=== PATIENT | male | born 1965 | race African-American/Black ===

== ENCOUNTER 2020-06-13 07:42 | Emergency (ER) | payer OTHER ==
[~2020-06-13] VITALS: Ht 167.6 cm; Wt 81.8 kg
[2020-06-13] MEDS ORDERED: ALBUTEROL SULFATE HFA 90 MCG/PUFF 8 GM INHALER IH ONE (09:15)
[2020-06-13] MEDS ORDERED: IPRATROPIUM BROMIDE HFA 17 MCG/PUFF 12.9 GM INHALER IH ONE (09:15)
[2020-06-13 09:58] LABS: COVID AG,FIA SOURCE NASAL SWAB
[2020-06-13] MEDS ORDERED: ASPIRIN 81 MG CHEWABLE TABLET PO ONE (11:30)
[2020-06-13] MEDS ORDERED: ACETAMINOPHEN 160 MG/5 ML SUSPENSION UDCUP PO ONE (11:30)
[2020-06-13 11:44] LABS: APPEARANCE,URINE CLEAR (CLEAR); BILIRUBIN,URINE NEGATIVE (NEGATIVE); GLUCOSE, URINE (UA) NEGATIVE (NEGATIVE); KETONES,URINE TRACE mg/dL (NEGATIVE); LEUKOCYTE ESTERASE ,URINE NEGATIVE (NEGATIVE); NITRATE,URINE NEGATIVE (NEGATIVE); OCCULT BLOOD,URINE NEGATIVE (NEGATIVE); PH,URINE 7.5 (5.0-8.0); PROTEIN,URINE NEGATIVE (NEGATIVE)
[2020-06-13 12:23] LABS: BASOPHILS % (AUTO) 0.6 % (0.0-2.0); EOSINOPHILS % (AUTO) 1.6 % (1.0-6.0); HEMATOCRIT 44.2 % (41-53); HEMOGLOBIN 14.1 g/dL (13.5-17.5); LYMPHOCYTES # (AUTO) 1.3 K/uL (1.0-4.8); LYMPHOCYTES % (AUTO) 23.3 % (22.0-44.0); MEAN CORPUSCULAR HEMOGLOBIN 30.3 pg (26.0-34.0); MEAN CORPUSCULAR HGB CONC 31.9 G/dL (31.0-37.0); MEAN CORPUSCULAR VOLUME 95 fL (80-100); MONOCYTES # (AUTO) 0.5 K/uL (0.1-1.0); NEUTROPHILS # (AUTO) 3.7 K/uL (1.8-7.7); NEUTROPHILS % (AUTO) 65.5 % (40.0-70.0); PLATELET COUNT (AUTO) 223 K/uL (150-450); RED BLOOD CELL COUNT(AUTO) 4.64 MIL/uL (4.50-5.90); RED CELL DISTRIBUTION WIDTH 14.1 % (11.5-14.5)
[2020-06-13 12:33] LABS: ANION GAP 9 mmol/L (8-16); CALCIUM, TOTAL 8.9 mg/dL (8.8-10.5); CARBON DIOXIDE 29 mmol/L (22-29); CHLORIDE 105 mmol/L (98-107); CREATININE 0.74 mg/dL (0.60-1.30); GLOMERULAR FILTR. RATE CALC > 60 mL/min (>60); GLUCOSE,RANDOM 101 mg/dL (70-110); POTASSIUM 3.9 mmol/L (3.5-5.1); SODIUM SERUM 143 mmol/L (136-145); UREA NITROGEN, BLOOD 9 mg/dL (7-18)
[2020-06-13 12:52] LABS: B-TYPE NATRIURETIC PEPTIDE 26 pg/mL (0-100)
[2020-06-13 12:58] LABS: ALANINE AMINOTRANSFERASE 59 U/L (12-78); ALBUMIN 3.8 g/dL (3.4-5.0); ALKALINE PHOSPHATASE 113 U/L (46-116); ASPARTATE AMINOTRANSFERASE 35 U/L (15-37); BILIRUBIN,TOTAL 0.3 mg/dL (0.1-1.0); CREATINE KINASE, TOTAL ONLY 591 U/L (39-308); TOTAL PROTEIN, SERUM 7.5 g/dL (6.4-8.2)
[2020-06-13 13:16] VITALS: BP 161/41
== END 2020-06-13 14:43 | disposition home or self-care (01) ==
LOC: EMS 07:42
DX: I10 Essential (primary) hypertension (principal); R06.02 Shortness of breath; R51.9 Headache, unspecified; J45.909 Unspecified asthma, uncomplicated; F17.210 Nicotine dependence, cigarettes, uncomplicated; Z20.822 Contact with and (suspected) exposure to COVID-19
CPT/HCPCS: 87426; 93005; 94640; 99285; J3535; 36415-L1; 36415-TC; 71045-TC; 81003-TC

== ENCOUNTER 2020-06-20 20:31 | Emergency (ER) | payer OTHER ==
[~2020-06-20] VITALS: Ht 157.5 cm; Wt 180.0 kg
[2020-06-20] MEDS ORDERED: CARB-60 PO (20:53)
[2020-06-20] MEDS ORDERED: LISI-893 PO (20:53)
[2020-06-20] MEDS ORDERED: DICL75TA5 PO (20:53)
[2020-06-20] MEDS ORDERED: VENL-193 PO (20:53)
[2020-06-20] MEDS ORDERED: BUSP15 PO (20:53)
[2020-06-20] MEDS ORDERED: ACET-3385 PO (20:53)
[2020-06-20] MEDS ORDERED: PANT-31 PO (20:53)
[2020-06-20] MEDS ORDERED: METO25TA3 PO (20:53)
[2020-06-20] MEDS ORDERED: CHLO100T31 PO (20:53)
[2020-06-20] MEDS ORDERED: ATOR40TA28 PO (20:53)
[2020-06-20] MEDS ORDERED: GABA-1181 PO (20:53)
[2020-06-20] MEDS ORDERED: NORT25 PO (20:53)
[2020-06-20] MEDS ORDERED: HYD50 PO (20:53)
[2020-06-20] MEDS ORDERED: METF-960 PO (20:53)
[2020-06-20] MEDS ORDERED: ASPI-1450 PO (20:53)
[2020-06-20] MEDS ORDERED: AMOX TR/POT CLAV 875 MG/125 MG TABLET PO ONE (23:15)
[2020-06-20] MEDS ORDERED: PERTUSS(ACELL),DIPH,TET VAC/PF 0.5 ML SYRINGE IM ONE (23:30)
[2020-06-20] MEDS ORDERED: ACETAMINOPHEN 325 MG TABLET PO ONE (23:30)
[2020-06-21 01:23] VITALS: BP 135/71
== END 2020-06-21 02:07 | disposition short-term general hospital (02) ==
LOC: EMS 20:31
DX: S02.5XXA Fracture of tooth (traumatic), initial encounter for closed fracture (principal); J45.909 Unspecified asthma, uncomplicated; E11.9 Type 2 diabetes mellitus without complications; E78.00 Pure hypercholesterolemia, unspecified; I10 Essential (primary) hypertension; F17.210 Nicotine dependence, cigarettes, uncomplicated; Z79.84 Long term (current) use of oral hypoglycemic drugs; Z79.899 Other long term (current) drug therapy; W50.0XXA Accidental hit or strike by another person, initial encounter; Y93.89 Activity, other specified; Y92.89 Other specified places as the place of occurrence of the external cause; Y99.8 Other external cause status
CPT/HCPCS: 90471; 90715; 99283; 99285

== ENCOUNTER 2020-08-30 10:02 | Emergency (ER) | payer OTHER ==
[~2020-08-30] VITALS: Ht 170.2 cm; Wt 79.5 kg
[~2020-08-30 10:02] MED LIST: ACET-3385 PO; ASPI-1450 PO; ATOR40TA28 PO; BUSP15 PO; CARB-60 PO; CHLO100T31 PO; DICL75TA5 PO; GABA-1181 PO; HYD50 PO; LISI-893 PO; METF-960 PO; METO25TA3 PO; NORT25 PO; PANT-31 PO; VENL-193 PO
[2020-08-30 10:37] LABS: COVID AG,FIA SOURCE NASOPHARYNGEAL
[2020-08-30] MEDS ORDERED: SODIUM CHLORIDE 0.9% 1,000 ML IV ONE (10:45)
[2020-08-30] MEDS ORDERED: ONDANSETRON HCL 4 MG/2 ML VIAL IVP ONE (10:45)
[2020-08-30] MEDS ORDERED: KETOROLAC TROMETHAMINE 30 MG/ML VIAL IVP ONE (10:45)
[2020-08-30] MEDS ORDERED: ACETAMINOPHEN 500 MG TABLET PO ONE (10:45)
[2020-08-30 11:24] LABS: BASOPHILS % (AUTO) 0.5 % (0.0-2.0); EOSINOPHILS % (AUTO) 0.6 % (1.0-6.0); HEMATOCRIT 39.2 % (41-53); HEMOGLOBIN 12.6 g/dL (13.5-17.5); LYMPHOCYTES # (AUTO) 1.6 K/uL (1.0-4.8); LYMPHOCYTES % (AUTO) 27.8 % (22.0-44.0); MEAN CORPUSCULAR HEMOGLOBIN 29.8 pg (26.0-34.0); MEAN CORPUSCULAR VOLUME 93 fL (80-100); MONOCYTES # (AUTO) 0.4 K/uL (0.1-1.0); MONOCYTES % (AUTO) 7.2 % (2.0-9.0); NEUTROPHILS # (AUTO) 3.7 K/uL (1.8-7.7); NEUTROPHILS % (AUTO) 63.9 % (40.0-70.0); PLATELET COUNT (AUTO) 216 K/uL (150-450); RED BLOOD CELL COUNT(AUTO) 4.21 MIL/uL (4.50-5.90); RED CELL DISTRIBUTION WIDTH 13.5 % (11.5-14.5)
[2020-08-30 11:32] LABS: APPEARANCE,URINE CLEAR (CLEAR); GLUCOSE, URINE (UA) NEGATIVE (NEGATIVE); KETONES,URINE NEGATIVE (NEGATIVE); LEUKOCYTE ESTERASE ,URINE NEGATIVE (NEGATIVE); NITRATE,URINE NEGATIVE (NEGATIVE); OCCULT BLOOD,URINE NEGATIVE (NEGATIVE); PROTEIN,URINE NEGATIVE (NEGATIVE)
[2020-08-30 11:51] LABS: BILIRUBIN,URINE PRELIM. POSITIVE (NEGATIVE)
[2020-08-30 12:04] LABS: AMPHET/METH SCREEN,URINE NEGATIVE (NEGATIVE); BARBITURATE SCREEN, URINE NEGATIVE (NEGATIVE); BENZODIAZEPINES SCREEN,URINE NEGATIVE (NEGATIVE); CANNABINOID SCREEN,URINE NEGATIVE (NEGATIVE); COCAINE SCREEN,URINE NEGATIVE (NEGATIVE); METHADONE SCREEN, URINE NEGATIVE (NEGATIVE); OPIATE SCREEN,URINE NEGATIVE (NEGATIVE)
[2020-08-30 12:08] LABS: PHENCYCLIDINE SCREEN,URINE NEGATIVE (NEGATIVE)
[2020-08-30 12:10] LABS: LACTIC ACID 1.9 mmol/L (0.4-2.0)
[2020-08-30 12:17] LABS: ANION GAP 12 mmol/L (8-16); CARBON DIOXIDE 25 mmol/L (22-29); CHLORIDE 106 mmol/L (98-107); CREATININE 0.96 mg/dL (0.60-1.30); GLOMERULAR FILTR. RATE CALC > 60 mL/min (>60); GLUCOSE,RANDOM 103 mg/dL (70-110); POTASSIUM 3.6 mmol/L (3.5-5.1); SODIUM SERUM 143 mmol/L (136-145); UREA NITROGEN, BLOOD 16 mg/dL (7-18)
[2020-08-30 12:19] LABS: ALANINE AMINOTRANSFERASE 39 U/L (12-78); ALBUMIN 3.3 g/dL (3.4-5.0); ALKALINE PHOSPHATASE 101 U/L (46-116); ASPARTATE AMINOTRANSFERASE 25 U/L (15-37); BILIRUBIN,TOTAL 0.3 mg/dL (0.1-1.0); LIPASE 127 U/L (73-393); TOTAL PROTEIN, SERUM 6.5 g/dL (6.4-8.2)
[2020-08-30 13:03] LABS: WBC,URINE 0-2 /HPF (0-5)
[2020-08-30 13:04] LABS: BACTERIA,URINE None Seen /HPF (None Seen); RBC,URINE 0-2 /HPF (0-2)
[2020-08-30 13:05] LABS: SQUAMOUS EPITHELIAL CELL,UR None Seen /LPF (None Seen); YEAST,URINE None Seen /HPF (None Seen)
[2020-08-30 13:10] VITALS: BP 129/72
== END 2020-08-30 13:28 | disposition home or self-care (01) ==
LOC: EMS 10:05
DX: K52.9 Noninfective gastroenteritis and colitis, unspecified (principal); J45.909 Unspecified asthma, uncomplicated; E11.9 Type 2 diabetes mellitus without complications; E78.00 Pure hypercholesterolemia, unspecified; I10 Essential (primary) hypertension; F17.210 Nicotine dependence, cigarettes, uncomplicated; Z20.822 Contact with and (suspected) exposure to COVID-19; Z79.899 Other long term (current) drug therapy; Z79.84 Long term (current) use of oral hypoglycemic drugs
CPT/HCPCS: 36415; 71045; 74176; 80053; 80307; 81001; 83605; 83690; 84484; 85025; 87426; 93005; 96361; 96374; 96375; 99285; G0480; J1885; J2405; J7030

== ENCOUNTER 2021-02-27 14:05 | Emergency (ER) | payer OTHER ==
[~2021-02-27] VITALS: Ht 165.1 cm; Wt 80.0 kg
[~2021-02-27 14:05] MED LIST changes: +METF-1211 PO; -METF-960 PO
[2021-02-27 17:22] VITALS: BP 160/80
== END 2021-02-27 18:15 | disposition home or self-care (01) ==
LOC: EMS 14:09
DX: S60.031A Contusion of right middle finger without damage to nail, initial encounter (principal); M13.842 Other specified arthritis, left hand; M13.841 Other specified arthritis, right hand; F17.210 Nicotine dependence, cigarettes, uncomplicated; E11.9 Type 2 diabetes mellitus without complications; I10 Essential (primary) hypertension; E78.00 Pure hypercholesterolemia, unspecified; Y92.89 Other specified places as the place of occurrence of the external cause; Y99.8 Other external cause status; X58.XXXA Exposure to other specified factors, initial encounter; Y93.89 Activity, other specified; Z79.84 Long term (current) use of oral hypoglycemic drugs
CPT/HCPCS: 82962; 99284; 99285

== ENCOUNTER 2021-08-02 02:36 | Emergency (ER) | payer OTHER ==
[~2021-08-02] VITALS: Ht 177.8 cm; Wt 100.0 kg
[~2021-08-02 02:36] MED LIST changes: -CHLO100T31 PO; +CHLO100T42 PO; -HYD50 PO; +HYDR-4584 PO
[2021-08-02 04:00] VITALS: BP 123/65
[2021-08-02 04:27] LABS: BASOPHILS % (AUTO) 0.5 % (0.0-2.0); HEMATOCRIT 39.2 % (41-53); HEMOGLOBIN 12.6 g/dL (13.5-17.5); LYMPHOCYTES # (AUTO) 1.4 K/uL (1.0-4.8); LYMPHOCYTES % (AUTO) 26.6 % (22.0-44.0); MEAN CORPUSCULAR HEMOGLOBIN 30.4 pg (26.0-34.0); MEAN CORPUSCULAR HGB CONC 32.1 G/dL (31.0-37.0); MEAN CORPUSCULAR VOLUME 95 fL (80-100); MONOCYTES # (AUTO) 0.6 K/uL (0.1-1.0); NEUTROPHILS # (AUTO) 3.1 K/uL (1.8-7.7); NEUTROPHILS % (AUTO) 59.9 % (40.0-70.0); PLATELET COUNT (AUTO) 205 K/uL (150-450); RED BLOOD CELL COUNT(AUTO) 4.14 MIL/uL (4.50-5.90); RED CELL DISTRIBUTION WIDTH 13.5 % (11.5-14.5)
[2021-08-02 04:50] LABS: ANION GAP 6 mmol/L (8-16); CALCIUM, TOTAL 8.3 mg/dL (8.8-10.5); CARBON DIOXIDE 29 mmol/L (22-29); CHLORIDE 103 mmol/L (98-107); GLOMERULAR FILTR. RATE CALC > 60 mL/min (>60); GLUCOSE,RANDOM 98 mg/dL (70-110); POTASSIUM 3.6 mmol/L (3.5-5.1); SODIUM SERUM 138 mmol/L (136-145); UREA NITROGEN, BLOOD 11 mg/dL (7-18)
[2021-08-02 04:52] LABS: B-TYPE NATRIURETIC PEPTIDE 11 pg/mL (0-100)
[2021-08-02 05:12] LABS: ALANINE AMINOTRANSFERASE 27 U/L (12-78); ALKALINE PHOSPHATASE 85 U/L (46-116); ASPARTATE AMINOTRANSFERASE 27 U/L (15-37); BILIRUBIN,TOTAL 0.3 mg/dL (0.1-1.0); CREATINE KINASE, TOTAL ONLY 407 U/L (39-308); TOTAL PROTEIN, SERUM 6.5 g/dL (6.4-8.2)
[2021-08-02] MEDS ORDERED: ACETAMINOPHEN 500 MG TABLET PO ONE (07:00)
== END 2021-08-02 08:16 | disposition home or self-care (01) ==
LOC: EMS 02:38
DX: R00.1 Bradycardia, unspecified (principal); R07.89 Other chest pain; R06.02 Shortness of breath; R42 Dizziness and giddiness; M25.561 Pain in right knee; M25.562 Pain in left knee; M25.511 Pain in right shoulder; M25.512 Pain in left shoulder; J45.909 Unspecified asthma, uncomplicated; E11.9 Type 2 diabetes mellitus without complications; E78.00 Pure hypercholesterolemia, unspecified; I10 Essential (primary) hypertension; F17.210 Nicotine dependence, cigarettes, uncomplicated; Z79.899 Other long term (current) drug therapy
CPT/HCPCS: 71045; 80053; 82550; 83880; 84484; 85025; 93005; 99285; 36415-L1; 36415-TC

== ENCOUNTER 2021-11-05 08:10 | Emergency (ER) | payer OTHER ==
[~2021-11-05] VITALS: Ht 157.5 cm; Wt 68.2 kg
[2021-11-05] MEDS ORDERED: IBUPROFEN 600 MG TABLET PO ONE (09:15)
[2021-11-05] MEDS ORDERED: ACETAMINOPHEN 500 MG TABLET PO ONE (09:15)
[2021-11-05] MEDS ORDERED: DiphenhydrAMINE HCL 25 MG CAPSULE PO ONE (09:15)
[2021-11-05 09:43] LABS: BASOPHILS % (AUTO) 0.9 % (0.0-2.0); EOSINOPHILS % (AUTO) 1.7 % (1.0-6.0); HEMATOCRIT 43.1 % (41-53); HEMOGLOBIN 14.1 g/dL (13.5-17.5); LYMPHOCYTES # (AUTO) 1.1 K/uL (1.0-4.8); LYMPHOCYTES % (AUTO) 25.3 % (22.0-44.0); MEAN CORPUSCULAR HEMOGLOBIN 30.8 pg (26.0-34.0); MEAN CORPUSCULAR HGB CONC 32.8 G/dL (31.0-37.0); MEAN CORPUSCULAR VOLUME 94 fL (80-100); MONOCYTES # (AUTO) 0.5 K/uL (0.1-1.0); MONOCYTES % (AUTO) 10.9 % (2.0-9.0); NEUTROPHILS # (AUTO) 2.8 K/uL (1.8-7.7); NEUTROPHILS % (AUTO) 61.2 % (40.0-70.0); PLATELET COUNT (AUTO) 197 K/uL (150-450); RED BLOOD CELL COUNT(AUTO) 4.58 MIL/uL (4.50-5.90); RED CELL DISTRIBUTION WIDTH 13.9 % (11.5-14.5)
[2021-11-05 09:56] LABS: ANION GAP 8 mmol/L (8-16); CALCIUM, TOTAL 8.7 mg/dL (8.8-10.5); CARBON DIOXIDE 27 mmol/L (22-29); CHLORIDE 104 mmol/L (98-107); CREATININE 0.95 mg/dL (0.60-1.30); GLOMERULAR FILTR. RATE CALC > 60 mL/min (>60); GLUCOSE,RANDOM 107 mg/dL (70-110); POTASSIUM 3.7 mmol/L (3.5-5.1); SODIUM SERUM 139 mmol/L (136-145); UREA NITROGEN, BLOOD 12 mg/dL (7-18)
[2021-11-05 10:21] LABS: ALANINE AMINOTRANSFERASE 28 U/L (12-78); ALBUMIN 3.3 g/dL (3.4-5.0); ALKALINE PHOSPHATASE 94 U/L (46-116); ASPARTATE AMINOTRANSFERASE 21 U/L (15-37); BILIRUBIN,TOTAL 0.5 mg/dL (0.1-1.0); CREATINE KINASE, TOTAL ONLY 266 U/L (39-308); PHOSPHORUS 3.2 mg/dL (2.5-4.9); TOTAL PROTEIN, SERUM 6.8 g/dL (6.4-8.2)
[2021-11-05 10:23] LABS: B-TYPE NATRIURETIC PEPTIDE 14 pg/mL (0-100)
[2021-11-05] MEDS ORDERED: MAGNESIUM OXIDE 400 MG TABLET PO ONE (10:30)
[2021-11-05 10:48] VITALS: BP 133/70
== END 2021-11-05 11:18 | disposition home or self-care (01) ==
LOC: EMS 08:15
DX: M79.641 Pain in right hand (principal); R20.2 Paresthesia of skin; J45.909 Unspecified asthma, uncomplicated; E78.00 Pure hypercholesterolemia, unspecified; I10 Essential (primary) hypertension; F17.210 Nicotine dependence, cigarettes, uncomplicated; R07.89 Other chest pain; E78.5 Hyperlipidemia, unspecified
CPT/HCPCS: 71045; 80053; 82550; 83735; 83880; 84100; 84484; 85025; 93005; 99285; 36415-L1; 36415-TC

== ENCOUNTER 2022-02-22 15:40 | Emergency (ER) | payer OTHER ==
[~2022-02-22] VITALS: Ht 165.1 cm; Wt 66.8 kg
[~2022-02-22 15:40] MED LIST changes: -ACET-3385 PO; -PANT-31 PO
[2022-02-22 16:44] LABS: BASOPHILS % (AUTO) 0.5 % (0.0-2.0); EOSINOPHILS % (AUTO) 1.5 % (1.0-6.0); HEMATOCRIT 41.9 % (41-53); HEMOGLOBIN 13.4 g/dL (13.5-17.5); LYMPHOCYTES # (AUTO) 1.6 K/uL (1.0-4.8); LYMPHOCYTES % (AUTO) 36.7 % (22.0-44.0); MEAN CORPUSCULAR HEMOGLOBIN 31.2 pg (26.0-34.0); MEAN CORPUSCULAR VOLUME 97 fL (80-100); MONOCYTES # (AUTO) 0.5 K/uL (0.1-1.0); MONOCYTES % (AUTO) 11.2 % (2.0-9.0); NEUTROPHILS # (AUTO) 2.2 K/uL (1.8-7.7); NEUTROPHILS % (AUTO) 50.1 % (40.0-70.0); PLATELET COUNT (AUTO) 214 K/uL (150-450); RED CELL DISTRIBUTION WIDTH 13.2 % (11.5-14.5)
[2022-02-22] MEDS ORDERED: KETOROLAC TROMETHAMINE 30 MG/ML VIAL IVP ONE (16:45)
[2022-02-22] MEDS ORDERED: SODIUM CHLORIDE 0.9% 1,000 ML IV ONE (16:45)
[2022-02-22 16:56] LABS: ANION GAP 6 mmol/L (8-16); CALCIUM, TOTAL 8.5 mg/dL (8.8-10.5); CARBON DIOXIDE 28 mmol/L (22-29); CHLORIDE 103 mmol/L (98-107); CREATININE 0.86 mg/dL (0.60-1.30); GLOMERULAR FILTR. RATE CALC > 60 mL/min (>60); GLUCOSE,RANDOM 92 mg/dL (70-110); SODIUM SERUM 137 mmol/L (136-145); UREA NITROGEN, BLOOD 16 mg/dL (7-18)
[2022-02-22 16:59] LABS: ALANINE AMINOTRANSFERASE 26 U/L (12-78); ALBUMIN 3.4 g/dL (3.4-5.0); ALKALINE PHOSPHATASE 89 U/L (46-116); ASPARTATE AMINOTRANSFERASE 22 U/L (15-37); BILIRUBIN,TOTAL 0.2 mg/dL (0.1-1.0); TOTAL PROTEIN, SERUM 6.9 g/dL (6.4-8.2)
[2022-02-22] MEDS ORDERED: CEPH-558 PO (17:47)
[2022-02-22] MEDS ORDERED: CYCL-448 PO (17:47)
[2022-02-22] MEDS ORDERED: CEPHALEXIN MONOHYDRATE 500 MG CAPSULE PO ONE (18:00)
[2022-02-22] MEDS ORDERED: BENZ-70 PO (18:25)
[2022-02-22 18:45] VITALS: BP 143/78
== END 2022-02-22 18:47 | disposition home or self-care (01) ==
LOC: EMS 15:52
DX: G43.909 Migraine, unspecified, not intractable, without status migrainosus (principal); G89.29 Other chronic pain; M54.50 Low back pain, unspecified; L03.032 Cellulitis of left toe; J45.909 Unspecified asthma, uncomplicated; E78.00 Pure hypercholesterolemia, unspecified; I10 Essential (primary) hypertension; F17.210 Nicotine dependence, cigarettes, uncomplicated; Z98.890 Other specified postprocedural states
CPT/HCPCS: 99283; 96374; 96361; 80053; 85025; 36415; J1885; J7030

== ENCOUNTER 2022-05-16 12:35 | Inpatient (IN) | payer MEDICAID, OTHER ==
[~2022-05-16] VITALS: Ht 157.5 cm; Wt 66.8 kg
[~2022-05-16 12:35] MED LIST changes: +BENZ-227 PO; +CEPH-558 PO; +CYCL-448 PO; -METF-1211 PO
[2022-05-16] MEDS ORDERED: METO25 PO (13:17)
[2022-05-16] MEDS ORDERED: FLUT16SP NASAL (13:17)
[2022-05-16] MEDS ORDERED: MELA5TAB40 PO (13:17)
[2022-05-16] MEDS ORDERED: NALT50TA5 PO (13:17)
[2022-05-16] MEDS ORDERED: ESCI10 PO (13:17)
[2022-05-16 13:34] LABS: COVID AG,FIA SOURCE NASOPHARYNGEAL
[2022-05-16] MEDS ORDERED: ACETAMINOPHEN 500 MG TABLET PO ONE (13:45)
[2022-05-16] MEDS ORDERED: IBUPROFEN 600 MG TABLET PO ONE (13:45)
[2022-05-16 13:50] LABS: ANION GAP 9 mmol/L (8-16); CALCIUM, TOTAL 8.5 mg/dL (8.8-10.5); CARBON DIOXIDE 27 mmol/L (22-29); CHLORIDE 103 mmol/L (98-107); CREATININE 0.77 mg/dL (0.60-1.30); GLOMERULAR FILTR. RATE CALC > 60 mL/min (>60); GLUCOSE,RANDOM 115 mg/dL (70-110); POTASSIUM 3.9 mmol/L (3.5-5.1); SODIUM SERUM 139 mmol/L (136-145); UREA NITROGEN, BLOOD 15 mg/dL (7-18)
[2022-05-16 13:51] LABS: AMPHET/METH SCREEN,URINE NEGATIVE (NEGATIVE); BARBITURATE SCREEN, URINE NEGATIVE (NEGATIVE); BENZODIAZEPINES SCREEN,URINE NEGATIVE (NEGATIVE); CANNABINOID SCREEN,URINE NEGATIVE (NEGATIVE); COCAINE SCREEN,URINE NEGATIVE (NEGATIVE); METHADONE SCREEN, URINE NEGATIVE (NEGATIVE); OPIATE SCREEN,URINE NEGATIVE (NEGATIVE); PHENCYCLIDINE SCREEN,URINE NEGATIVE (NEGATIVE)
[2022-05-16 13:52] LABS: BASOPHILS % (AUTO) 0.7 % (0.0-2.0); HEMATOCRIT 42.4 % (41-53); HEMOGLOBIN 13.3 g/dL (13.5-17.5); LYMPHOCYTES # (AUTO) 1.6 K/uL (1.0-4.8); LYMPHOCYTES % (AUTO) 33.8 % (22.0-44.0); MEAN CORPUSCULAR HEMOGLOBIN 30.6 pg (26.0-34.0); MEAN CORPUSCULAR HGB CONC 31.5 G/dL (31.0-37.0); MEAN CORPUSCULAR VOLUME 97 fL (80-100); MONOCYTES # (AUTO) 0.4 K/uL (0.1-1.0); NEUTROPHILS # (AUTO) 2.7 K/uL (1.8-7.7); NEUTROPHILS % (AUTO) 56.5 % (40.0-70.0); PLATELET COUNT (AUTO) 224 K/uL (150-450); RED BLOOD CELL COUNT(AUTO) 4.36 MIL/uL (4.50-5.90); RED CELL DISTRIBUTION WIDTH 13.7 % (11.5-14.5)
[2022-05-16 14:13] LABS: ALANINE AMINOTRANSFERASE 27 U/L (12-78); ALBUMIN 3.4 g/dL (3.4-5.0); ALKALINE PHOSPHATASE 95 U/L (46-116); ASPARTATE AMINOTRANSFERASE 26 U/L (15-37); BILIRUBIN,TOTAL 0.3 mg/dL (0.1-1.0); CREATINE KINASE, TOTAL ONLY 357 U/L (39-308); TOTAL PROTEIN, SERUM 7.2 g/dL (6.4-8.2)
[2022-05-16 14:17] LABS: B-TYPE NATRIURETIC PEPTIDE 25 pg/mL (0-100)
[2022-05-16] MEDS ORDERED: ZOLPIDEM TARTRATE 10 MG TABLET PO PRN (15:45)
[2022-05-16] MEDS ORDERED: LORazepam 2 MG TABLET PO PRN (15:45)
[2022-05-16] MEDS ORDERED: HALOPERIDOL 5 MG TABLET PO PRN (15:45)
[2022-05-16] MEDS ORDERED: HALOPERIDOL 5 MG TABLET PO ONE (16:00)
[2022-05-16] MEDS ORDERED: DiphenhydrAMINE HCL 25 MG CAPSULE PO ONE (16:00)
[2022-05-16] MEDS ORDERED: INSULIN REGULAR, HUMAN 100 UNITS/ML SQ ONE (16:00)
[2022-05-16] MEDS ORDERED: LORazepam 2 MG TABLET PO ONE (16:00)
[2022-05-16 21:41] VITALS: BP 110/82
[2022-05-17 08:07] VITALS: BP 135/65
[2022-05-17] MEDS ORDERED: LISINOPRIL 10 MG TABLET PO SCH (11:00)
[2022-05-17] MEDS ORDERED: ASPIRIN 81 MG CHEWABLE TABLET PO SCH (11:00)
[2022-05-17] MEDS: CarBAMazepine 200 MG TABLET PO SCH ×2 (11:33→16:03)
[2022-05-17] MEDS: ESCITALOPRAM OXALATE 10 MG TABLET PO SCH (11:33)
[2022-05-17] MEDS: BusPIRone HCL 15 MG TABLET PO SCH ×2 (11:33→16:03)
[2022-05-17] MEDS: METOPROLOL TARTRATE 25 MG TABLET PO SCH ×2 (11:34→16:03)
[2022-05-17] MEDS: METHYL SALICYLATE/MENTHOL 85 GM CREAM TP PRN (13:45)
[2022-05-17] MEDS: CLOTRIMAZOLE 1% 15 GM CREAM TP SCH ×2 (13:45→16:04)
[2022-05-17] MEDS: NORTRIPTYLINE HCL 25 MG CAPSULE PO SCH ×2 (13:45→21:34)
[2022-05-17] MEDS ORDERED: CloNIDine HCL 0.1 MG TABLET PO PRN (15:15)
[2022-05-17] MEDS ORDERED: DOCUSATE SODIUM 100 MG CAPSULE PO PRN (15:15)
[2022-05-17] MEDS ORDERED: ONDANSETRON HCL 4 MG TABLET PO PRN (15:15)
[2022-05-17] MEDS ORDERED: LOPERAMIDE HCL 2 MG CAPSULE PO PRN (15:15)
[2022-05-17] MEDS ORDERED: ALBUTEROL SULFATE HFA 90 MCG/PUFF 8 GM INHALER IH PRN (15:15)
[2022-05-17] MEDS ORDERED: ACETAMINOPHEN 325 MG TABLET PO PRN (15:15)
[2022-05-17] MEDS ORDERED: NICOTINE 14 MG/24 HOUR PATCH TD PRN (15:15)
[2022-05-17] MEDS ORDERED: FLUTICASONE PROPIONATE 50 MCG/SPRAY 16 GM NASAL SPRAY NASAL PRN (15:15)
[2022-05-17] MEDS ORDERED: PETROLATUM,WHITE 28 GM JELLY TP PRN (15:15)
[2022-05-17] MEDS ORDERED: MAGNESIUM HYDROXIDE SUSPENSION 30 ML UDCUP PO PRN (15:15)
[2022-05-17] MEDS ORDERED: IBUPROFEN 400 MG TABLET PO PRN (15:15)
[2022-05-17] MEDS ORDERED: GuaiFENesin/D-METHORPHAN [SUGAR-FREE] 200-20MG/10 ML SYRUP UDCUP PO PRN (15:15)
[2022-05-17] MEDS: DICLOFENAC SODIUM 75 MG DR TABLET PO SCH (16:03)
[2022-05-17] MEDS: MELATONIN 5 MG TABLET PO SCH (20:15)
[2022-05-17] MEDS: ChlorproMAZINE HCL 100 MG TABLET PO SCH (20:15)
[2022-05-17 20:22] VITALS: BP 128/71
[2022-05-17] MEDS ORDERED: ATORVASTATIN CALCIUM 40 MG TABLET PO SCH (21:00)
[2022-05-17 21:01] VITALS: BP 131/86
[2022-05-18] MEDS: CarBAMazepine 200 MG TABLET PO SCH ×2 (08:27→16:31)
[2022-05-18] MEDS: NORTRIPTYLINE HCL 25 MG CAPSULE PO SCH ×2 (08:27→16:31)
[2022-05-18] MEDS: ASPIRIN 81 MG CHEWABLE TABLET PO SCH (08:28)
[2022-05-18] MEDS: DICLOFENAC SODIUM 75 MG DR TABLET PO SCH ×2 (08:28→16:31)
[2022-05-18] MEDS: METOPROLOL TARTRATE 25 MG TABLET PO SCH ×2 (08:28→16:31)
[2022-05-18] MEDS: ESCITALOPRAM OXALATE 10 MG TABLET PO SCH (08:28)
[2022-05-18] MEDS: ATORVASTATIN CALCIUM 40 MG TABLET PO SCH (08:28)
[2022-05-18] MEDS: BusPIRone HCL 15 MG TABLET PO SCH ×2 (08:28→16:31)
[2022-05-18] MEDS: LISINOPRIL 10 MG TABLET PO SCH (08:28)
[2022-05-18] MEDS: CLOTRIMAZOLE 1% 15 GM CREAM TP SCH ×2 (09:11→16:31)
[2022-05-18 09:40] VITALS: BP 100/62
[2022-05-18] MEDS: METHYL SALICYLATE/MENTHOL 85 GM CREAM TP PRN (16:31)
[2022-05-18] MEDS: MAG HYDROX/AL HYDROX/SIMETH ES 30 ML SUSPENSION UDCUP PO PRN (20:10)
[2022-05-18 20:15] VITALS: BP 106/69
[2022-05-18] MEDS: MELATONIN 5 MG TABLET PO SCH (20:37)
[2022-05-18] MEDS: ChlorproMAZINE HCL 100 MG TABLET PO SCH (20:37)
[2022-05-19] MEDS: MAG HYDROX/AL HYDROX/SIMETH ES 30 ML SUSPENSION UDCUP PO PRN (03:07)
[2022-05-19 08:06] LABS: GLUCOMETER DEV NAME(LOC) POC.BV
[2022-05-19] MEDS: LISINOPRIL 10 MG TABLET PO SCH (08:07)
[2022-05-19] MEDS: CarBAMazepine 200 MG TABLET PO SCH (08:07)
[2022-05-19] MEDS: DICLOFENAC SODIUM 75 MG DR TABLET PO SCH (08:07)
[2022-05-19] MEDS: BusPIRone HCL 15 MG TABLET PO SCH (08:07)
[2022-05-19] MEDS: ESCITALOPRAM OXALATE 10 MG TABLET PO SCH (08:07)
[2022-05-19] MEDS: ATORVASTATIN CALCIUM 40 MG TABLET PO SCH (08:07)
[2022-05-19] MEDS: METOPROLOL TARTRATE 25 MG TABLET PO SCH (08:08)
[2022-05-19] MEDS: NORTRIPTYLINE HCL 25 MG CAPSULE PO SCH (08:08)
[2022-05-19] MEDS: ASPIRIN 81 MG CHEWABLE TABLET PO SCH (08:08)
[2022-05-19] MEDS: CLOTRIMAZOLE 1% 15 GM CREAM TP SCH (08:13)
[2022-05-19] MEDS: METHYL SALICYLATE/MENTHOL 85 GM CREAM TP PRN (08:14)
[2022-05-19 10:39] VITALS: BP 112/62
[2022-05-19] MEDS ORDERED: BUSP15 PO (14:51)
[2022-05-19] MEDS ORDERED: ESCI10 PO (14:51)
[2022-05-19] MEDS ORDERED: CARB200T6 PO (14:51)
[2022-05-19] MEDS ORDERED: CHLO100T42 PO (14:51)
[2022-05-19] MEDS ORDERED: NORT25 PO (14:51)
== END 2022-05-19 15:50 | disposition home or self-care (01) | DRG 750 ==
LOC: EMS 12:38 → B3A 17:14
PROVIDERS: ADMIT Psychiatry & Neurology Child & Adolescent Psychiatry; ATTEND Psychiatry & Neurology Child & Adolescent Psychiatry
DX: F25.0 Schizoaffective disorder, bipolar type (principal); Z91.14 Patient's other noncompliance with medication regimen; D64.9 Anemia, unspecified; E78.00 Pure hypercholesterolemia, unspecified; F41.1 Generalized anxiety disorder; G47.00 Insomnia, unspecified; J45.909 Unspecified asthma, uncomplicated; Z20.822 Contact with and (suspected) exposure to COVID-19; I10 Essential (primary) hypertension; Z87.891 Personal history of nicotine dependence
CPT/HCPCS: 71045; 80053; 80307; 82550; 83880; 84484; 85025; 93005; 99285; G0480; Q9967; 36415-L1; 36415-TC

== ENCOUNTER 2022-05-29 15:45 | Emergency (ER) | payer MEDICAID, OTHER ==
[~2022-05-29] VITALS: Ht 157.5 cm; Wt 75.0 kg
[~2022-05-29 15:45] MED LIST changes: -BENZ-227 PO; -CARB-60 PO; +CARB200T6 PO; -CEPH-558 PO; -CYCL-448 PO; +ESCI10 PO; -GABA-1181 PO; -HYDR-4584 PO; +MELA5TAB40 PO; +METO25 PO; -METO25TA3 PO; +NALT50TA5 PO; -VENL-193 PO
[2022-05-29] MEDS ORDERED: ACETAMINOPHEN 325 MG TABLET PO ONE (17:15)
[2022-05-29 17:50] LABS: COVID AG,FIA SOURCE NASAL SWAB
[2022-05-29] MEDS ORDERED: BENZONATATE 100 MG CAPSULE PO ONE (18:45)
[2022-05-29 20:40] VITALS: BP 144/70
[2022-05-29] MEDS ORDERED: BENZ-227 PO (22:52)
== END 2022-05-29 23:01 | disposition home or self-care (01) ==
LOC: EMS 15:48
DX: R51.9 Headache, unspecified (principal); H93.12 Tinnitus, left ear; M54.2 Cervicalgia; G89.29 Other chronic pain; M54.9 Dorsalgia, unspecified; Z20.822 Contact with and (suspected) exposure to COVID-19; Y09 Assault by unspecified means
CPT/HCPCS: 70450; 72125; 99285

== ENCOUNTER 2022-07-13 09:06 | Emergency (ER) | payer OTHER ==
[~2022-07-13] VITALS: Ht 165.1 cm; Wt 72.7 kg
[~2022-07-13 09:06] MED LIST changes: +BENZ-227 PO
[2022-07-13 10:48] LABS: BASOPHILS % (AUTO) 0.5 % (0.0-2.0); EOSINOPHILS % (AUTO) 0.2 % (1.0-6.0); HEMATOCRIT 41.7 % (41-53); HEMOGLOBIN 13.6 g/dL (13.5-17.5); LYMPHOCYTES # (AUTO) 1.3 K/uL (1.0-4.8); LYMPHOCYTES % (AUTO) 23.4 % (22.0-44.0); MEAN CORPUSCULAR HEMOGLOBIN 31.4 pg (26.0-34.0); MEAN CORPUSCULAR HGB CONC 32.7 G/dL (31.0-37.0); MEAN CORPUSCULAR VOLUME 96 fL (80-100); MONOCYTES # (AUTO) 0.5 K/uL (0.1-1.0); MONOCYTES % (AUTO) 8.4 % (2.0-9.0); NEUTROPHILS # (AUTO) 3.7 K/uL (1.8-7.7); NEUTROPHILS % (AUTO) 67.5 % (40.0-70.0); PLATELET COUNT (AUTO) 256 K/uL (150-450); RED BLOOD CELL COUNT(AUTO) 4.34 MIL/uL (4.50-5.90); RED CELL DISTRIBUTION WIDTH 13.5 % (11.5-14.5)
[2022-07-13 10:55] LABS: ANION GAP 8 mmol/L (8-16); CALCIUM, TOTAL 8.8 mg/dL (8.8-10.5); CARBON DIOXIDE 29 mmol/L (22-29); CHLORIDE 104 mmol/L (98-107); CREATININE 0.88 mg/dL (0.60-1.30); GLOMERULAR FILTR. RATE CALC > 60 mL/min (>60); GLUCOSE,RANDOM 90 mg/dL (70-110); SODIUM SERUM 141 mmol/L (136-145); UREA NITROGEN, BLOOD 12 mg/dL (7-18)
[2022-07-13 11:08] LABS: B-TYPE NATRIURETIC PEPTIDE 41 pg/mL (0-100)
[2022-07-13 11:20] LABS: ALANINE AMINOTRANSFERASE 34 U/L (12-78); ALBUMIN 3.4 g/dL (3.4-5.0); ALKALINE PHOSPHATASE 100 U/L (46-116); ASPARTATE AMINOTRANSFERASE 34 U/L (15-37); BILIRUBIN,TOTAL 0.4 mg/dL (0.1-1.0); CREATINE KINASE, TOTAL ONLY 333 U/L (39-308); TOTAL PROTEIN, SERUM 7.2 g/dL (6.4-8.2)
[2022-07-13 11:27] LABS: PROTHROMBIN TIME 10.3 SEC (9.4-11.6)
[2022-07-13 11:54] LABS: APPEARANCE,URINE CLEAR (CLEAR); BILIRUBIN,URINE NEGATIVE (NEGATIVE); GLUCOSE, URINE (UA) NEGATIVE (NEGATIVE); KETONES,URINE NEGATIVE (NEGATIVE); LEUKOCYTE ESTERASE ,URINE NEGATIVE (NEGATIVE); NITRATE,URINE NEGATIVE (NEGATIVE); OCCULT BLOOD,URINE NEGATIVE (NEGATIVE); PH,URINE 5.5 (5.0-8.0); PROTEIN,URINE NEGATIVE (NEGATIVE); UROBILINOGEN,URINE <=1.0 mg/dL (<=1.0)
[2022-07-13] MEDS ORDERED: MECLIZINE HCL 25 MG TABLET PO ONE (12:00)
[2022-07-13] MEDS: KETOROLAC TROMETHAMINE 60 MG/2 ML VIAL IM ONE ×2 (12:45→12:49)
[2022-07-13] MEDS ORDERED: IBUP-1492 PO (13:12)
[2022-07-13 14:05] VITALS: BP 142/82
== END 2022-07-13 14:09 | disposition home or self-care (01) ==
LOC: EMS 09:10
DX: D68.9 Coagulation defect, unspecified (principal); R42 Dizziness and giddiness; F41.9 Anxiety disorder, unspecified; J45.909 Unspecified asthma, uncomplicated; F32.A Depression, unspecified; E78.00 Pure hypercholesterolemia, unspecified; I10 Essential (primary) hypertension; G51.0 Bell's palsy; Z87.891 Personal history of nicotine dependence
CPT/HCPCS: 99285; 70450; 71045; 80053; 81003; 82550; 83880; 84484; 85025; 85610; 85730; 36415; 93005; 96372; J1885

== ENCOUNTER 2022-07-24 07:30 | Emergency (ER) | payer OTHER ==
[~2022-07-24] VITALS: Ht 157.5 cm; Wt 68.2 kg
[~2022-07-24 07:30] MED LIST changes: +IBUP-1492 PO
[2022-07-24] MEDS ORDERED: KETOROLAC TROMETHAMINE 60 MG/2 ML VIAL IM ONE (08:15)
[2022-07-24] MEDS ORDERED: IBUP-1492 PO (08:38)
[2022-07-24 08:50] VITALS: BP 120/45
== END 2022-07-24 08:54 | disposition home or self-care (01) ==
LOC: EMS 07:32
DX: S66.911A Strain of unspecified muscle, fascia and tendon at wrist and hand level, right hand, initial encounter (principal); J45.909 Unspecified asthma, uncomplicated; F32.A Depression, unspecified; E78.00 Pure hypercholesterolemia, unspecified; I10 Essential (primary) hypertension; G51.0 Bell's palsy; F17.210 Nicotine dependence, cigarettes, uncomplicated; X58.XXXA Exposure to other specified factors, initial encounter; Y93.89 Activity, other specified; Y92.89 Other specified places as the place of occurrence of the external cause; Y99.8 Other external cause status; F41.9 Anxiety disorder, unspecified
CPT/HCPCS: 99283; 73110; 29125; 96372; J1885